=== PATIENT | male | born 1940 | race Caucasian/White ===

== ENCOUNTER → 2017-07-10 | Day surgery (SDC) | payer MEDICARE, BC ==
[2017-07-07 11:30] VITALS: BMI 30.9
[~2017-07-10] MED LIST: Lidocaine 1% PF 5 ML VIAL ONE; PHENYLEPHRINE-NS 100 MCG/ML 10 ML SYRINGE ONE; PROPOFOL 200 MG/20 ML VIAL ONE
--- NOTE | 2017-07-10 13:00 | OP ---
DATE OF PROCEDURE: 07/10/2017 PROCEDURE: Colonoscopy with snare polypectomy. PHYSICIAN: Alphonse Sarkar M.D. MEDICATIONS: Given by Anesthesiologist Department. PREOPERATIVE DIAGNOSIS: History of colon polyps. POSTOPERATIVE DIAGNOSES: 1. Transverse colon polyp, 4 mm. 2. Sigmoid polyp, 8 mm. 3. Diverticulosis coli, sigmoid. PROCEDURE IN DETAIL: Written consent was obtained prior to procedure. After adequate sedation, rect al exam performed was normal. Endoscope was advanced to the cecum. The quality of the bowel prep wa s good. The cecum, ascending colon, hepatic flexure, transverse colon, splenic flexure, descending c olon appeared normal and a transverse colon, a 4 mm sessile polyp was noted and was removed with a co ld snare.
--- NOTE | 2017-07-10 13:01 | OP ---
DATE OF PROCEDURE: 07/10/2017 PROCEDURE: Esophagogastroduodenoscopy with Jasso dilatation. ATTENDING PHYSICIAN: Dr. Sarkar. MEDICATIONS: Given by Anesthesiology Department. PREPROCEDURE DIAGNOSES: 1. Dysphagia. 2. History of esophageal stricture. 3. Gastroesophageal reflux. POSTPROCEDURE DIAGNOSES: Lower esophageal stricture, status post dilatation with 54-[place] Jasso. PROCEDURE IN DETAIL: A written consent was obtained prior to procedure. After adequate sedation, th e forward-viewing endoscope was advanced down the hypopharynx under direct vision to second portion o f duodenum. Both the second portion and the bulb appeared normal. Pylorus is patent. The gastric a ntrum, body, fundus, and cardia all appeared normal. GE junction located at 40 cm. In the lower eso phagus above the GE junction, a concentric mild stricture was noted. The mid and upper esophagus lilliam eared normal. Dilation was performed with a 54-[place] Jasso without any complication. The patient tolerated the procedure well. ASSESSMENT: Recurrent lower esophageal stricture, status post dilatation with 54-[place] Jasso. RECOMMENDATIONS: 1. Repeat dilation as needed. 2. Resume medication.
--- NOTE | 2017-07-10 13:16 | OP ---
DATE OF PROCEDURE: 07/10/2017 PROCEDURE: Colonoscopy with snare polypectomy. PHYSICIAN: Niko Sarkar M.D. PREMEDICATION: Given by Anesthesiology Department. PREPROCEDURE DIAGNOSIS: History of colon polyp. POSTPROCEDURE DIAGNOSES: 1. Transverse colon polyp and sigmoid polyp. 2. Sigmoid diverticulosis coli. PROCEDURE IN DETAIL: A written consent was obtained prior to procedure. After adequate sedation, a rectal exam was performed and was normal. Endoscope was advanced to the cecum. The quality of the b owel prep was good. The cecum, ascending colon, hepatic flexure, transverse colon appeared normal. A 4 mm polyp was noted in the transverse and was removed with a cold snare. Descending colon appeare d normal. Scattered diverticula were noted in the sigmoid colon. An 8 mm semi-pedunculated polyp wa s noted in the sigmoid colon and was removed with a hot snare. Rectal vault appeared normal includin g retroflexion. The patient tolerated the procedure well. ASSESSMENT: 1. Transverse colon polyp and sigmoid colon polyp removed. 2. Sigmoid diverticulosis coli. PLAN: Await biopsy result.
== END ==
LOC: SDC 10:30
PROVIDERS: ATTEND Internal Medicine Gastroenterology
PROC: 0DBN8ZX Excision of Sigmoid Colon, Via Natural or Artificial Opening Endoscopic, Diagnostic (ICD-10-PCS; principal; 2017-07-10)
PROC: 0DBL8ZX Excision of Transverse Colon, Via Natural or Artificial Opening Endoscopic, Diagnostic (ICD-10-PCS; 2017-07-10)
PROC: 0DJ08ZZ Inspection of Upper Intestinal Tract, Via Natural or Artificial Opening Endoscopic (ICD-10-PCS; 2017-07-10)
PROC: 0D757DZ Dilation of Esophagus with Intraluminal Device, Via Natural or Artificial Opening (ICD-10-PCS; 2017-07-10)
DX: Z12.11 Encounter for screening for malignant neoplasm of colon (principal); D12.5 Benign neoplasm of sigmoid colon; D12.3 Benign neoplasm of transverse colon; K57.30 Diverticulosis of large intestine without perforation or abscess without bleeding; R13.10 Dysphagia, unspecified; K22.2 Esophageal obstruction; K21.9 Gastro-esophageal reflux disease without esophagitis; I69.311 Memory deficit following cerebral infarction; I48.91 Unspecified atrial fibrillation; I25.10 Atherosclerotic heart disease of native coronary artery without angina pectoris; M19.90 Unspecified osteoarthritis, unspecified site; Z79.01 Long term (current) use of anticoagulants; Z79.82 Long term (current) use of aspirin; Z79.899 Other long term (current) drug therapy; Z91.048 Other nonmedicinal substance allergy status; Z95.0 Presence of cardiac pacemaker; Z98.890 Other specified postprocedural states; Z87.891 Personal history of nicotine dependence; Z87.19 Personal history of other diseases of the digestive system
CPT/HCPCS: 88305; J2001; J2704

== ENCOUNTER 2018-02-15 08:21 | Outpatient (CLI) | payer MEDICARE, BC ==
--- NOTE | 2018-02-15 11:16 | RAD ---
ESOPHAGRAM: Air-contrast esophagram performed. HISTORY: Dysphagia. FINDINGS: Esophagus and swallowing mechanism appear unremarkable. No significant diaphragmatic hernia. No GE reflux is demonstrated when the patient is placed recumbent. A 12 mm barium tablet was swallowed to the EG junction without difficulty. No evidence of significant stricture. Mild mucosal irregularity at the EG junction. IMPRESSION: Unremarkable esophagram. Consider endoscopy to further evaluation the esophagogastric junction. POS: [facility]
== END 2018-02-15 08:22 | disposition home or self-care (01) ==
LOC: RAD 08:21
PROVIDERS: ATTEND Family Medicine
DX: R13.10 Dysphagia, unspecified (principal)
CPT/HCPCS: 74220

== ENCOUNTER 2018-04-01 21:55 | Emergency (ER) | payer MEDICARE, BC ==
[~2018-04-01 21:55] MED LIST changes: +ISOVUE-370 76%-LOCM 1 ML ONE; -Lidocaine 1% PF 5 ML VIAL ONE; -PHENYLEPHRINE-NS 100 MCG/ML 10 ML SYRINGE ONE; -PROPOFOL 200 MG/20 ML VIAL ONE
[2018-04-01] MEDS ORDERED: Ketorolac Tromethamine 30 MG/ML VIAL ONE (22:19)
[2018-04-01] MEDS ORDERED: Morphine 4 MG/ML VIAL ONE (22:19)
[2018-04-01 22:38] LABS: #Basophils 0.1 thou/uL (0.0-0.2); #Eosinphils 0.5 thou/uL (0.0-0.7); #Lymphocytes 2.4 thou/uL (1.20-3.40); #Monocytes 0.9 thou/uL (0.11-0.59); #Neutrophils 5.2 thou/uL (1.40-6.50); %Basophils 0.8 % (0.0-1.0); %Eosinophils 5.5 % (0.0-10.0); %Lymphocytes 26.5 % (21.0-51.0); %Neutrophils 57.3 % (42.0-75.0); Hemoglobin 14.3 g/dL (14.0-18.0); Mean Corpuscular HGB CONC 33.8 g/dL (32.0-36.0); Mean Corpuscular Hemoglobin 31.2 pg (27.0-31.0); Mean Corpuscular Volume 92.2 fL (78.0-98.0); Mean Platelet Volume 7.6 fL (7.4-10.4); Platelet Count 215 thou/uL (130-400); RBC Distribution Width 12.8 % (11.5-14.5); White Blood Cell (WBC) Count 9.2 thou/uL (4.8-10.8)
[2018-04-01 22:46] LABS: INR-International Normal Ratio 1.2; PTT 30.8 SEC (22.9-36.1); Prothrombin Time 15.5 SEC (12.0-14.7)
[2018-04-01 23:02] LABS: ALT (SGPT) 33 U/L (8-55); AST (SGOT) 31 U/L (5-34); Alkaline Phosphatase 88 U/L (40-150); Anion Gap 16 mmol/L (10-20); BUN (Urea Nitrogen) 20 mg/dL (8.4-25.7); Bilirubin, Total 1.1 mg/dL (0.2-1.2); Calc. Creatinine Clearance 0 mL/min (70-130); Calcium 9.2 mg/dL (7.8-10.44); Carbon Dioxide 22 mmol/L (23-31); Chloride 102 mmol/L (98-107); Estimated GFR-MDRD 56; Globulin 3.1 g/dL (2.4-3.5); Glucose 125 mg/dL (83-110); Protein, Total 7.1 g/dL (5.8-8.1); Sodium 136 mmol/L (136-145)
[2018-04-01 23:04] LABS: CKMB 1.7 ng/mL (0-6.6); Troponin I Less than 0.010 ng/mL (< 0.028)
--- NOTE | 2018-04-01 23:14 | RAD ---
RIGHT HAND THREE VIEWS: History: Pain. Fall. Comparison: None. FINDINGS: There are degenerative changes of the first carpal metacarpal joint space. Evaluation is limited for acute injury. No evidence of fracture of the phalanges or metacarpal bones. On the lateral projection there is dorsal soft tissue swelling at the level of the metacarpal phalangeal joint spaces. IMPRESSION: 1. No definite fracture. 2. Soft tissue swelling in the dorsum of the hand. 3. Presumed chronic change along the first carpal metacarpal joint space. POS: [facility]
--- NOTE | 2018-04-01 23:15 | RAD ---
CHEST TWO VIEWS: Comparison: 05-29-13 History: Pain. Status post fall. FINDINGS: There are sternotomy wires, aortic heart valve and atherosclerotic of the aorta. Left sided transveno us defibrillator with leads positioned over the right atrium and right ventricle. Scar and/or atelectasis in the left lung base. No significant pleural effusion in either costophrenic angle. No consolidation. No pneumothorax or acute osseous abnormality. IMPRESSION: Atherosclerosis. No acute cardiopulmonary process. POS: [facility]
--- NOTE | 2018-04-01 23:39 | CT ---
NONCONTRAST HEAD CT: Comparison: 07-01-16 History: Mechanical fall over curb. Pain. FINDINGS: No parenchymal hemorrhage. No extraaxial hematoma. No midline shift. Basilar cisterns are patent. Age appropriate atrophy. Stable malacic changes in the right frontal and temporal lobe. Remainder of the cerebrum demonstrates preservation of cortical sanchez white matter differentiation. No evidence of hydrocephalus. Calvarium is intact. Minimal mucosal thickening of the ethmoid air cell s. IMPRESSION: No intracranial post-traumatic sequellae. POS: [facility]
--- NOTE | 2018-04-01 23:50 | CT ---
ABDOMEN CT WITH CONTRAST PELVIC CT WITH CONTRAST LIMITED CT OF THE LUMBAR SPINE: History: Fall. Pain. Trauma. FINDINGS: ABDOMEN CT: Heart is enlarged. No pericardial fluid. Chronic changes in the lung bases. Visualized aorta has a normal caliber. No periaortic fat stranding. CT evidence of cholelithiasis without evidence of cholecystitis. Portal vein is patent. Hypoattenuation of the liver due to hepatic steatosis. Spleen, pancreas, and adrenal glands have appr opriate enhancement. No gastric hepatic, retrocrural or periportal lymphadenopathy. Umbilical hernia containing mesenteric fat. No mesenteric mass, lymphadenopathy, free air or free flu id. Symmetric enhancement of the kidneys. Bilaterally, no obstructive uropathy. 4.0 x 4.0 cyst emanating from the lower pole of the right kidney. Subcentimeter hypodensity in the midportion of the left kidn ey likely representing a 1 cm cyst. Limited evaluation of the alimentary canal by the lack of oral contrast. No evidence of bowel obstruc tion. Ileocecal junction is normal. Unremarkable colon. Occasional diverticulum. No diverticulitis. CT PELVIS: Mild prostatic hypertrophy. Decompressed urinary bladder limits evaluation. No pelvic mass, lymphaden opathy, free air or free fluid. Visualized left ribs do not demonstrate any post-traumatic change. There is a fracture involving ante rior lateral right 8th rib. Bony pelvis is intact. LIMITED CT OF THE LUMBAR SPINE: Lumbar spine vertebral body height is maintained. No fracture. IMPRESSION: 1. Right 8th rib fracture. 2. No post-traumatic sequellae in the abdomen or pelvis. POS: [facility]
[2018-04-02] MEDS ORDERED: HYDROcodone/Acetaminophen 10/325 mg Tablet ONE (01:34)
== END 2018-04-02 01:30 | disposition home or self-care (01) ==
LOC: ERS 21:55
DX: S06.0X0A Concussion without loss of consciousness, initial encounter (principal); S22.31XA Fracture of one rib, right side, initial encounter for closed fracture; S60.221A Contusion of right hand, initial encounter; I10 Essential (primary) hypertension; Z87.891 Personal history of nicotine dependence; W01.0XXA Fall on same level from slipping, tripping and stumbling without subsequent striking against object, initial encounter
CPT/HCPCS: 70450; 71046; 74177; 80053; 82553; 84484; 85025; 85610; 85730; 93005; 94760; 96374; 96375; J1885; J2270

== ENCOUNTER 2018-04-11 06:50 | Day surgery (SDC) | payer MEDICARE, BC ==
[2018-04-10 13:42] VITALS: BMI 29.0
--- NOTE | 2018-04-11 16:26 | OP ---
DATE OF PROCEDURE: 04/11/2018 PROCEDURE PERFORMED: Esophagogastroduodenoscopy with biopsy and esophageal Jasso dilatation. PREMEDICATION: Given by Anesthesiology Department. PREPROCEDURE DIAGNOSES: 1. Choking, coughing, and occasional dysphagia. 2. Upper gastrointestinal demonstrated nonspecific mild lower esophageal irregularity. POSTPROCEDURE DIAGNOSES: 1. Small duodenal ulcer, 5 mm. 2. Normal stomach. 3. Mild mucosal scarring in lower esophagus, no apparent stricture, status post empiric dilatation with 54-[place] Jasso. DESCRIPTION OF PROCEDURE: Written consents were obtained prior to the procedure. After adequate sedation, forward viewing endoscope was advanced into stomach under direct vision to the second portion of duodenum. The second portion appeared normal. In the bulb, a small 5-mm clean cratered ulcer was noted. The pylorus was patent. The gastric antrum, body, fundus, and cardia were all appeared normal. Biopsy was obtained for H. pylori. Retroflexion was normal. GE junction was noted at 40 cm. Mild degree of mucosal scarring was noted. There was no obvious stricture. There was free passage of the scope through this area. The mid and upper esophagus appeared normal. Empiric dilatation was performed using a 54-[place] Jasso. The patient tolerated the procedure well without any complications. ASSESSMENT: 1. Mild lower esophageal scarring without stricturing, status post Jasso dilatation with 54-[place] dilator. 2. Small duodenal ulcer. PLAN: 1. Await biopsy result. 2. Continue pantoprazole 40 mg daily for reflux. 3. We will obtain modifier barium swallow to evaluate his choking and gagging given his history of CVA last year. Job ID: [id number]
[2018-04-11] MEDS ORDERED: PROPOFOL 200 MG/20 ML VIAL ONE (16:52)
== END 2018-04-11 10:50 | disposition home or self-care (01) ==
LOC: SDC 06:50
PROVIDERS: ATTEND Internal Medicine Gastroenterology
PROC: 0DB68ZX Excision of Stomach, Via Natural or Artificial Opening Endoscopic, Diagnostic (ICD-10-PCS; principal; 2018-04-11)
PROC: 0D757ZZ Dilation of Esophagus, Via Natural or Artificial Opening (ICD-10-PCS; 2018-04-11)
DX: K29.50 Unspecified chronic gastritis without bleeding (principal); K26.9 Duodenal ulcer, unspecified as acute or chronic, without hemorrhage or perforation; R13.10 Dysphagia, unspecified; Z87.891 Personal history of nicotine dependence; Z79.01 Long term (current) use of anticoagulants; Z79.899 Other long term (current) drug therapy; Z98.890 Other specified postprocedural states
CPT/HCPCS: 88305; 88312; J2704

== ENCOUNTER 2018-04-20 10:39 | Outpatient (CLI) | payer MEDICARE, BC ==
--- NOTE | 2018-04-25 12:58 | RAD ---
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 Feeding difficulties, R63.3. Cerebral infarction unspecified, I69.31. COMPARISON: None. FINDINGS: The exam was performed by the speech pathologist without the radiologist present. Multiple consistenc ies of contrast were administered. IMPRESSION: Fluoroscopy for the speech pathologist. Radiologist not present. Please see speech pathologist's repo rt for details of the examination. POS: [facility]
== END 2018-04-20 10:40 | disposition home or self-care (01) ==
PROVIDERS: ATTEND Internal Medicine Gastroenterology
DX: I69.391 Dysphagia following cerebral infarction (principal); R63.3 Feeding difficulties
CPT/HCPCS: 74230; G8996-GN-CJ; G8997-GN-CI

== ENCOUNTER 2018-10-14 19:30 | Emergency (ER) | payer MEDICARE, BC | END 2018-10-14 20:35 | disposition home or self-care (01) | LOC: ERS 19:30 | DX: L02.415 Cutaneous abscess of right lower limb (principal); I10 Essential (primary) hypertension; Z87.891 Personal history of nicotine dependence; Z79.82 Long term (current) use of aspirin; Z79.01 Long term (current) use of anticoagulants; Z79.899 Other long term (current) drug therapy | CPT/HCPCS: 10060 ==